=== PATIENT | male | born 1980 | race Caucasian/White ===

== ENCOUNTER 2024-08-21 12:48 | Emergency (ER) | payer SELFPAY ==
[2024-08-21 12:55] VITALS: BP 120/80; PULSE 103; RESP 20; TEMP 36.4; O2SAT 95
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
--- OUTSIDE RECORDS SUMMARY | 2024-08-21 13:42 | XMS_ITS | Encounter Summary ---
Author Organization [facility] Address [address] [place] [address] Phone Care Team Providers Care Photolithographic Stripper Name Role Phone Ayad Steiner MD Primary Care Provider [phone] Ayad Steiner MD Primary Care Provider [phone] Provider, None Primary Care Provider Unavailabl e Reason for Visit * Reason Onset Date Comments Other 09/13/2019 Verbal approval for home care Encounter Details Date Type Department Care Team (Late st Contact Info) Description 09/13/2019 Telephone [facility] [address] [place] [id number] Rupali Pena, PT [place] Other (Verbal approval for home care ) Social History Tobacco Use Types Packs/Day Years Used Date Smoking Tobacco: Every Day Cigarettes Smokeless Tobacco: Never Alcohol Use Standard Drinks/Week Comments Yes 0 (1 standard drink = 0.6 oz pur e alcohol) several drinks tonight AUDIT-C Answer Date Recorded Q1: How often do you have a drink containing alc ohol? Never 09/08/2019 Average Number of Drinks Not on file 020 Frequency of Binge Drinking Not on file 08/20 Sex and Gender Information Value Date Recorded Sex Assigned at Male 05/16/2024 11:16 AM CDT Legal Sex Male 8:48 PM CDT Gender Identity Male 05/16/2024 11:16 AM CDT Sexual Orientation Not on file COVID-19 Exposure Response Date Recorded In the last month, have you been in contact with someone who was confirmed or suspected to have Coronavirus / COVID-19? No / Unsure 09/08/2019 1:38 AM CDT documented as of this encounter Miscellaneous Notes * Telephone Encounter - Rupali Pena, PT - 09/13/2019 5:43 PM CDT PT admission was completed today. PT frequency is to be 1x a week for 3 weeks to focus on establishing HEP, thera ex for strengthening, transfer, pain management and gait training. Pt was discharged last 09-09 but received referral on 09-11. Will it be ok to move referral date to 09-11? No major drug interactions with current medications. Please reply to this message to acknowledge that you approve of this plan. Official orders will come to you for signature via [employer]. If you have questions, please contact our Home Care office at [phone] option 4. Thank you for this referral. documented in this encounter Plan of Treatment Not on file documented as of this encounter Visit Diagnoses Not on filedocumented in this encounter Additional Health Concerns Infection Onset Date Last Indicated Resolved Time COVID - 19 05/16/2024 05/16/2024 05/16/2024 2:06 PM CDT documented as of this encounter Care Teams Photolithographic Stripper Relationship Specialty Start Date End Date Ayad Steiner MD [address] [place] [address] PCP - General Family Medicine 09/11/19 09/15/19 Ayad Steiner MD [address] [place] [address] PCP - General Family Medicine 09/18/19 03/13/22 Provider, None [place] PCP - General 05/16/24 documented as of this encounter
--- OUTSIDE RECORDS SUMMARY | 2024-08-21 13:42 | XMS_ITS | Clinical Summary ---
Author Organization [facility] Address [address] [place] [id number] Phone Care Team Providers Care Supervisor Production Department Name Role Phone Identified, No Provider Primary Care Provider Un available Allergies No known active allergies Medications No known medications Active Problems No known active problems Social History Tobacco Use Types Packs/Day Years Used Date Smoking Tobacco: Every Day Cigarettes Smokeless Tobacco: Never Alcohol Use Standard Drinks/Week Comments No 0 (1 standard drink = 0.6 oz pur e alcohol) Sex and Gender Information Value Date Recorded Sex Assigned at Not on file 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 Gender Identity Not on file Sexual Orientation Not on file Last Filed Vital Signs Vital Sign Reading Time Taken Comments Blood Pressure 128/82 12/22/2011 10:14 AM CDT Pulse 74 07/25/2022 1:56 PM CDT Temperature 36.7 C (98.1 F) 07/25/2022 1:56 PM CDT Respiratory Rate 18 12/22/2011 10:14 AM CDT Oxygen Saturation 99% 07/25/2022 1:56 PM CDT Inhaled Oxygen Concentration - - Weight 99.8 kg (220 lb) 07/25/2022 1:56 PM CDT Height 194.3 cm (6' 4.5) 07/25/2022 1:56 PM CDT Body Mass Index 26.43 07/25/2022 1:56 PM CDT Plan of Treatment Health Maintenance Due Date Last Done Comments MMR Vaccines (1 of 1 - Stand roxana series) 1982 Varicella Vaccines (1 of 2 - 13+ 2-dose series) 1994 Hepatitis B Vaccines (1 of 3 - 19+ 3-dose series) 2000 Lipid Panel 2001 Screening for Diabetes 2016 DTaP/Tdap/Td Vaccines (1 - Tdap) 09/09/2019 09/08/19 Depression Screening 07/26/2023 07/25/2022 COVID-19 Vaccine (2 - 2023-2 5 season) 2023 02/04/2021 Influenza Vaccine (Season Ended) 2024 HIB Vaccines Aged Out No longer eligi ble based on patient's age to complete this topic HPV Vaccines Aged Out No longer eligi ble based on patient's age to complete this topic Hepatitis A Vaccines Aged Out No long er eligible based on patient's age to complete this topic IPV Vaccines Aged Out No longer eligi ble based on patient's age to complete this topic Meningococcal B Vaccine Aged Out No l onger eligible based on patient's age to complete this topic Meningococcal Vaccine (ACWY) Aged Out No longer eligible based on patient's age to complete this topic Pneumococcal Vaccines Aged Out No luis felipe pravin eligible based on patient's age to complete this topic Rotavirus Vaccines Aged Out No longer eligible based on patient's age to complete this topic Care Teams Supervisor Production Department Relationship Specialty Start Date End Date Identified, No Provider PCP - General 12/22/11
--- NOTE | 2024-08-21 13:58 | ED.LOWEXIN ---
HPI - Extremity Injury (Lower) General Chief Complaint: Extremity Injury, Lower Stated Complaint: L knee pain I think i was bit by something Time Seen by Provider: 08/21/24 13:19 Source: patient Mode of arrival: ambulatory Limitations: no limitations History of Present Illness HPI Narrative: Patient is a 44 y/o male who presents to the ED with c/o L knee pain. Patient reports he was bit by something while outside on his left lateral anterior knee a few days ago. States the lesion formed a white head and he did drain this himself last night. He reports pain associated with the lesion. Denies significant pain in his left knee or with range of motion of his left knee. Is able to ambulate without issue. Denies fevers. Denies numbness. Denies lower extremity swelling. Related Data Allergies Allergy/AdvReac Type Severity Reaction Status Date / Time No Known Allergies Allergy Verified 08/21/24 12:58 Review of Systems Review of Systems: All systems reviewed & are unremarkable except as noted in HPI. All systems reviewed & are unremarkable except as noted in HPI and below Exam Narrative: GENERAL: Well appearing, well-nourished, non-toxic, in no acute distress. HEAD: Normocephalic, atraumatic. RESPIRATORY: Airway patent, respirations nonlabored. CARDIOVASCULAR: Regular rate and rhythm without murmurs, rubs, or gallops. Pedal pulses intact and easily palpable. MUSCULOSKELETAL: Moves all extremities. No gross deformities. Full nonpainful range of motion of left knee. SKIN: Warm, dry, normal color. Small pustular lesion to L lateral anterior knee with approx 1cm circular area of redness surrounding. Otherwise no warmth or erythema of L knee. No active drainage. Minimal focal tenderness. NEURO: A&O X3. Speech clear. Steady gait. No ataxic movements. PSYCHIATRIC: Appropriate mood and affect. Normal interaction. Course Vital Signs Vital signs: Vital Signs Temperature 97.5 F L 08/21/24 12:55 Pulse Rate 103 H 08/21/24 12:55 Respiratory Rate 20 08/21/24 12:55 Blood Pressure 120/80 08/21/24 12:55 Pulse Oximetry 95 08/21/24 12:55 Oxygen Delivery Room Air 08/21/24 12:55 Temperature 97.7 F 08/21/24 14:46 Pulse Rate 89 08/21/24 14:46 Respiratory Rate 18 08/21/24 14:46 Blood Pressure 129/87 08/21/24 14:46 Pulse Oximetry 98 08/21/24 14:46 Oxygen Delivery Room Air 08/21/24 12:55 MDM - Extremity Injury (Lower) MDM Narrative Medical decision making narrative: Exam consistent with cellulitis related to insect bite of left knee. No concern for septic arthritis at this time. Full nonpainful range of motion. Neuro warmth or erythema of left knee, only surrounding focal lesion. No active drainage. No other systemic signs of infection. No focal injury. As well, patient has been ambulatory without issue up and down the hallway in the ED. No concern for fracture or need for x-ray imaging at this time. Will cover for cellulitis with doxycycline. Patient given strict return precautions. Discharged in stable condition. Medical Records Attestation: I reviewed the patient's medical records. Discharge Plan Discharge Clinical Impression: Cellulitis of left knee Insect bite Qualifiers: Encounter type: initial encounter Site of insect bite: knee Laterality: left Qualified Code(s): S80.262A - Insect bite (nonvenomous), left knee, initial encounter Patient Disposition: Home Condition: Stable Instructions: Antibiotic Form, Cellulitis (ED), Insect Bite or Sting (ED) Additional Instructions: Take antibiotics as prescribed. Recommend frequent warm compresses to knee, Tylenol/ibuprofen as needed for pain. Keep wound clean, dry, bandaged. Avoid swimming in lakes/pools/hot-tubs until finished with antibiotics. Return to the ED if you experience worsening or severe pain, severe redness or limited range of motion of knee, fevers, unable to keep down food or drink, or any other symptoms of concern. Patient Language: Swedish Prescriptions: New doxycycline monohydrate 100 mg tablet 100 mg PO BID 7 Days Qty: 14 0RF Follow-up/Referrals: PHYSICIAN,SEMI DRIVER [Primary Care Provider] - Randy Balderas MD [Physician] - (PRIMARY CARE) Time of Disposition: 14:35
[2024-08-21] MEDS: DOXYCYCLINE HYCLATE 100 MG TABLET PO (14:35)
[2024-08-21 14:46] VITALS: BP 129/87; PULSE 89; RESP 18; TEMP 36.5; O2SAT 98
== END 2024-08-21 14:50 | disposition home or self-care (01) ==
PROVIDERS: Emergency Provider Physician Assistant
DX: L03.116 Cellulitis of left lower limb (principal); S80.262A Insect bite (nonvenomous), left knee, initial encounter; W57.XXXA Bitten or stung by nonvenomous insect and other nonvenomous arthropods, initial encounter
CPT/HCPCS: 99283; A9270